=== PATIENT | male | born 1955 | race Caucasian/White ===

== ENCOUNTER 2024-01-25 11:56 | Emergency (ER) | payer SELFPAY ==
[2024-01-25 12:02] VITALS: BP 175/80; PULSE 72; RESP 18; TEMP 36.6; O2SAT 97
[2024-01-25 12:08] LABS: Glucose Point of Care 156 mg/dL (70-110)
--- NOTE | 2024-01-25 12:22 | CTR_ITS ---
PROCEDURE INFORMATION: Exam: CT Head Without Contrast Exam date and time: 01/25/2024 12:40 PM Age: 68 years old Clinical indication: Dizziness TECHNIQUE: Imaging protocol: Computed tomography of the head without contrast. Radiation optimization: All CT scans at this facility use at least one of these dose optimization techniques: automated exposure control; mA and/or kV adjustment per patient size (includes targeted exams where dose is matched to clinical indication); or iterative reconstruction. COMPARISON: No relevant prior studies available. RADIATION DOSE METRICS: Total DLP (mGy-cm): 1125.78 FINDINGS: Brain: No acute intracranial hemorrhage. No confluent lobar infarct. No mass effect. Cerebral ventricles: The ventricles and sulci are normal in size and shape for the patient's stated age. Paranasal sinuses: Mild mucoperiosteal thickening is seen involving the bilateral maxillary and ethmoid sinuses. Mastoid air cells: Visualized mastoid air cells are well aerated. Bones/joints: Unremarkable. No acute fracture. Soft tissues: Visualized soft tissues are unremarkable. CT/CT head wo con* [id number] IMPRESSION: No acute intracranial abnormality. If symptoms persist, consider further evaluation with MRI, if MRI is clinically safe to obtain.
--- NOTE | 2024-01-25 12:33 | ECG_ITS ---
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 Measurements Intervals [place] Rate: 62 P: 31 IN: 196 QRS: 2 QRSD: 93 T: 10 QT: 419 QTc: 427 Interpretive Statements SINUS RHYTHM No previous ECG available for comparison Electronically Signed On 01-26-2024 15:55:49 CDT by Basil Lugo M.D. [id number]
[2024-01-25] MEDS: ondansetron 2 mg/ML SDV 2 mL 8 MG IM (12:53)
[2024-01-25 13:02] VITALS: BP 160/75; PULSE 64; RESP 16; O2SAT 90
[2024-01-25 13:14] LABS: Basophils # 0.1 10^3/uL (0.0-0.1); Basophils % 0.5 %; Eosinophils # 0.1 10^3/uL (0.0-0.8); Eosinophils % 0.5 %; Hematocrit 43.9 % (37-53); Lymphocytes # 1.3 10^3/uL (0.8-4.8); Lymphocytes % 13.7 %; Mean Corpuscular HGB Conc 33.9 g/dL (30-55); Mean Corpuscular Hemoglobin 30.6 pg (27-33); Mean Corpuscular Volume 90.1 fl (82-101); Mean Platelet Volume 9.2 fL (7.4-10.4); Monocytes # 0.5 10^3/uL (0.2-0.9); Neutrophils % 79.8 %; Nucleated Red Blood Cells % 0 %; Platelet Count 302 10^3/cmm (157-399); Red Blood Count 4.87 10^6/uL (3.85-5.65); Red Cell Distribution Width 13.2 % (12.1-15.1); White Blood Count 9.65 10^3/uL (3.29-11.43)
[2024-01-25] MEDS: meclizine 25 mg tablet PO (13:17)
[2024-01-25 13:39] LABS: Troponin(5th) Baseline < 6 ng/L (0-15)
[2024-01-25 13:41] LABS: Alanine Aminotransferase 15 U/L (0-41); Albumin Level 4.2 g/dL (3.5-5.2); Alkaline Phosphatase 99 U/L (40-130); Aspartate Amino Transferase 12 U/L (0-40); Blood Urea Nitrogen 9 mg/dL (8-23); Calcium 9.1 mg/dL (8.5-10.5); Carbon Dioxide 22 mmol/L (22-29); Chloride 99 mmol/L (98-107); Globulin 2.7 g/dL (1.3-4.6); Glomerular Filtration Rate 96.7 mL/min (90-130); Glucose 129 mg/dL (65-115); Osmolality Calculated 276 mOsm/kg (285-295); Sodium 133 mmol/L (136-145); Total Bilirubin 0.5 mg/dL (0.15-1.2); Total Protein 6.9 g/dL (6.6-8.7)
--- NOTE | 2024-01-25 13:57 | W.ED.DIZZY ---
HPI - Dizziness General: Chief Complaint: Dizziness Stated Complaint: Dizzy, N/V Time Seen by Provider: 01/25/24 12:22 History of Present Illness: HPI Narrative: Patient presents to the ER with complaints of feeling dizzy and nausea vomiting starting about 2 days ago. No sick contacts were noted. Patient says he is never had the disease or felt like this before. Patient states that he feels like his equilibrium is off and when he walks he bounced off the marquez otherwise he will fall down. Patient's only medicine is a 3 and 25 mg aspirin daily, patient has no known allergies, patient has no recent hospitalizations or surgeries. Patient denies any other complaints other than dizziness and nausea and vomiting. Review of Systems General: Reports: 10 or more systems reviewed and unremarkable except in HPI and below Physical Exam Const: COMMON NORMALS: no acute distress, average body habitus, patient oriented x3, no limitations, healthy appearing, alert and well nourished HENMT: COMMON NORMALS: normocephalic, hearing grossly normal bilaterally, external ears normal, EAC's normal, TM's normal bilaterally, Normal external nose present, moist oral mucous membranes and oropharynx normal HEAD & SCALP: normocephalic NOSE: Normal external nose present EXTERNAL EAR: Yes external ears normal EXTERNAL AUDITORY CANAL: EAC's normal TYMPANIC MEMBRANE: TM's normal bilaterally Eye: COMMON NORMALS: Equal, round and reactive pupils present, EOMs intact bilaterally, conjunctivae normal and no scleral icterus CONJUNCTIVA: Yes conjunctivae normal PUPIL: Yes Equal, round and reactive pupils present Neck/C-Spine: COMMON NORMALS: full ROM, no lymphadenopathy, supple, no meningeal signs, no JVD and Thyroid normal THYROID: Thyroid normal Chest: COMMONS NORMALS: normal inspection of the chest and normal palpation of entire chest wall Resp: COMMON NORMALS: normal respiratory effort, No retractions, No use of accessory muscles and clear to auscultation bilaterally AUSCULTATION: clear to auscultation bilaterally Cardio: COMMON NORMALS: no JVD, regular rate, regular rhythm, S1 normal heart sound present, S2 normal heart sound present, No gallops present (Cardio), No clicks present (Cardio), No murmurs present (Cardio) and No rub (Cardio) RATE: regular rate RHYTHM: regular rhythm HEART SOUNDS: S1 normal heart sound present and S2 normal heart sound present GI: COMMON NORMALS: Normal to inspection, nondistended, normoactive bowel sounds present, Soft to palpation, non-tender, No hepatosplenomegaly present and no masses PALPATION: Yes Soft to palpation and Yes No hepatosplenomegaly present Neuro: COMMON NORMALS: patient oriented x3, CN's II-XII intact bilaterally, moves all extremities, no focal motor deficits and no sensory deficits noted SENSORIUM/ORIENTATION: Yes alert MENINGEAL SIGNS: Yes no meningeal signs Course Vital Signs: Vital signs: Vital Signs Temperature 97.8 F 01/25/24 12:02 Pulse Rate 86 01/25/24 17:16 Respiratory Rate 16 01/25/24 13:02 Blood Pressure 134/77 01/25/24 17:16 Pulse Oximetry 92 01/25/24 17:16 Oxygen Delivery Me thod Room Air 01/25/24 12:02 MDM - Dizziness Medical Decision Making Patient had lab work head CT and UA, EKG all of which was essentially benign. Patient was given naproxen meclizine and Zofran which helped his nausea and headache. Patient be discharged with diagnosis of vertigo and meclizine [facility]. Differential Diagnosis Likely benign paroxysmal positional vertigo; Unlikely adverse reaction to drug, orthostatic hypotension, vertebral basilar insufficiency, cerebrovascular accident, acute vestibular neuronitis or transient cerebral ischemia Medical Records I reviewed the patient's medical records. Lab Data I reviewed the patient's lab results. 01/25/24 13:04 01/25/24 13:[address] 01/25/24 12:22 IMPRESSION: No acute intracranial abnormality. If symptoms persist, consider further evaluation with MRI, if MRI is clinically safe to obtain. Laboratory Results WBC 9.65 10^3/uL (3.29-11.43) 01/25/24 13:04 RBC 4.87 10^6/uL (3.85-5.65) 01/25/24 13:04 Hgb 14.90 g/dL (11.27-16.99) 01/25/24 13:04 Hct 43.9 % (37-53) 01/25/24 13:04 MCV 90.1 fl (82-101) 01/25/24 13:04 MCH 30.6 pg (27-33) 01/25/24 13:04 MCHC 33.9 g/dL (30-55) 01/25/24 13:04 RDW 13.2 % (12.1-15.1) 01/25/24 13:04 Plt Count 302 10^3/cmm (157-399) 01/25/24 13:04 MPV 9.2 fL (7.4-10.4) 01/25/24 13:04 Neut % (Auto) 79.8 % 01/25/24 13:04 Lymph % (Auto) 13.7 % 01/25/24 13:04 [place] % (Auto) 5.0 % 01/25/24 13:04 Eos % (Auto) 0.5 % 01/25/24 13:04 Baso % (Auto) 0.5 % 01/25/24 13:04 Neut # (Auto) 7.70 10^3/uL (1.8-7.7) 01/25/24 13:04 Lymph # (Auto) 1.3 10^3/uL (0.8-4.8) 01/25/24 13:04 [place] # (Auto) 0.5 10^3/uL (0.2-0.9) 01/25/24 13:04 Eos # (Auto) 0.1 10^3/uL (0.0-0.8) 01/25/24 13:04 Baso # (Auto) 0.1 10^3/uL (0.0-0.1) 01/25/24 13:04 Nucleated RBC % (auto) 0 % 01/25/24 13:04 Nucleated RBCs # 0.0 /100WBC 01/25/24 13:04 Sodium 133 mmol/L (136-145) L 01/25/24 13:04 Potassium 4.0 mmol/L (3.5-5.1) 01/25/24 13:04 Chloride 99 mmol/L (98-107) 01/25/24 13:04 Carbon Dioxide 22 mmol/L (22-29) 01/25/24 13:04 Anion Gap 16.0 (5-19) 01/25/24 13:04 BUN 9 mg/dL (8-23) 01/25/24 13:04 Creatinine 0.8 mg/dL (0.7-1.2) 01/25/24 13:04 GFR Calculation 96.7 mL/min (90-130) 01/25/24 13:04 Glucose 129 mg/dL (65-115) H 01/25/24 13:04 POC Glucose 156 mg/dL (70-110) H 01/25/24 12:05 Calculated Osmolality 276 mOsm/kg (285-295) L 01/25/24 13:04 Calcium 9.1 mg/dL (8.5-10.5) 01/25/24 13:04 Magnesium 2.0 mg/dL (1.7-2.3) 01/25/24 13:04 Total Bilirubin 0.5 mg/dL (0.15-1.2) 01/25/24 13:04 AST 12 U/L (0-40) 01/25/24 13:04 ALT 15 U/L (0-41) 01/25/24 13:04 Alkaline Phosphatase 99 U/L (40-130) 01/25/24 13:04 Troponin T Baseline < 6 ng/L (0-15) 01/25/24 13:04 Troponin T 120 Minute 8.40 ng/L (0-15) 01/25/24 15:57 Delta Troponin T 2.08454 ABS# (0-10) 01/25/24 15:57 Total Protein 6.9 g/dL (6.6-8.7) 01/25/24 13:04 Albumin 4.2 g/dL (3.5-5.2) 01/25/24 13:04 Globulin 2.7 g/dL (1.3-4.6) 01/25/24 13:04 TSH 0.90 uIU/mL (0.27-4.20) 01/25/24 13:04 Urine Color Yellow (Yellow) 01/25/24 16:02 Urine Appearance Clear (CLEAR) 01/25/24 16:02 Urine pH 7 (5-7) 01/25/24 16:02 Ur Specific [place] 1.015 (1.005-1.030) 01/25/24 16:02 Urine Protein Neg (Negative) 01/25/24 16:02 Urine Glucose (UA) Norm (Normal) 01/25/24 16:02 Urine Ketones Negative (Negative) 01/25/24 16:02 Urine Blood Neg (Negative) 01/25/24 16:02 Urine Nitrate Negative (Negative) 01/25/24 16:02 Urine Bilirubin Neg (Negative) 01/25/24 16:02 Urine Urobilinogen Neg mg/dL (Negative) 01/25/24 16:02 Ur Leukocyte Esterase Negative (Negative) 01/25/24 16:02 All radiology interpretation(s) finalized by discharge EKG Data EKG 1: I personally reviewed and interpreted this EKG as follows: EKG interpretation date: 01/25/24 EKG interpretation time: 12:33 Interpretation: Ventricular rate 62 bpm, [place] interval 196, QRS duration 93, QTc of 424, sinus rhythm Discharge Plan Discharge Patient Disposition: Home Clinical Impression: Vertigo Condition: Stable Prescriptions: New meclizine 25 mg tablet 25 mg PO TID PRN (Reason: dizziness) Qty: 30 0RF No Action aspirin 325 mg Tablet 325 mg PO DAILY Discharge Orders: Discharge ED (Routine); Ordered 01/25/24 Ordered By: Jose Enrique Kingsley Patient Instructions: Vertigo (ED) Activity Restrictions/Additional Instructions: Take all medicine as prescribed as needed. Please follow-up with your family practitioner in the next 7 to 10 days for further evaluation treatment as needed. If your vertigo worsens please return to the ER. Coding Level of Care Code ED Ruffling Machine Operator for Garcia Olson
[2024-01-25] MEDS: sodium chloride 0.9% 1,000 ML 999 ML IV (15:18)
[2024-01-25 16:09] LABS: Add Urine Microscopic? NO; Charge for UA Resulting for Rev
[2024-01-25 16:16] LABS: Bilirubin Urine Neg (Negative); Blood Urine Neg (Negative); Glucose Urine UA Norm (Normal); Ketones Urine Negative (Negative); Leukocyte Esterase Urine Negative (Negative); Nitrate Urine Negative (Negative); Protein Urine Neg (Negative); Specific Gravity, Urine 1.015 (1.005-1.030); Urine Appearance Clear (CLEAR); Urine Color Yellow (Yellow); Urobilinogen Urine Neg (Negative); pH Urine 7 (5-7)
[2024-01-25] MEDS: naproxen 500 mg Tablet PO (17:10)
[2024-01-25 17:16] VITALS: BP 134/77; PULSE 86; O2SAT 92
[2024-01-25 17:58] LABS: Troponin 5 2HR Delta 2.40001 ABS# (0-10)
== END 2024-01-25 17:17 | disposition home or self-care (01) ==
PROVIDERS: Emergency Provider Emergency Medicine
DX: R42 Dizziness and giddiness (principal)
CPT/HCPCS: 36415; 36416; 70450; 80053; 81003; 82962; 83735; 84443; 84484; 85025; 93005; 96360; 96361; 96372; 99285; J2405; J7030; J8597

== ENCOUNTER → 2024-01-28 15:17 | Outpatient (BNVA) | payer SELFPAY | PROVIDERS: PCP Nurse Practitioner Family; Visit Provider Nurse Practitioner Family | DX: I10 Essential (primary) hypertension; R73.9 Hyperglycemia, unspecified | CPT/HCPCS: 80053; 80061; 82607; 83036; 83735; 84443; 85025 ==